=== PATIENT | male | born 1945 | race Caucasian/White ===

== ENCOUNTER 2022-09-17 11:10 | Emergency (ER) | payer OTHER ==
[2022-09-17 11:57] VITALS: BP 148/66; PULSE 64; RESP 18; TEMP 97.5; BMI 26.4
[2022-09-17] MEDS ORDERED: ACETAMINOPHEN 500 MG TABLET (FP) PO ONE (13:08)
[2022-09-17] MEDS ORDERED: ACETAMINOPHEN 325 MG TABLET (FP) ONE (13:15)
[2022-09-17 13:41] LABS: URINE APPEARANCE CLEAR; URINE BILIRUBIN NEGATIVE (NEGATIVE); URINE COLOR YELLOW; URINE GLUCOSE (UA) NEGATIVE (NEGATIVE); URINE KETONE NEGATIVE (NEGATIVE); URINE LEUK ESTERASE NEGATIVE (NEGATIVE); URINE NITRITE NEGATIVE (NEGATIVE); URINE PROTEIN NEGATIVE (NEGATIVE); URINE UROBILINOGEN 0.2 mg/dL (0.2-1.0)
[2022-09-17 13:50] LABS: BASO % 0.9 % (0-2.0); EOS % 5.1 % (0-4.5); HEMATOCRIT 41.5 % (35.4-49); HEMOGLOBIN 13.9 GM/dL (11.7-16.9); LYMPH % 21.2 % (8-40); MCH 30.8 pg (25.7-33.7); MCHC 33.6 g/dl (32.0-35.9); MEAN CELL VOLUME 91.8 fl (80-96); MEAN PLT VOLUME 10.6 fl (7.5-11.1); MONO % 7.5 % (3.8-10.2); NEUT % 65.3 % (42.8-82.8); PLATELET COUNT 120 10^3/uL (134-434); RBC 4.52 M/mm3 (4.00-5.60); RDW 13.7 % (11.9-15.9)
[2022-09-17 13:57] LABS: INR 1.21 (0.83-1.09); PROTHROMBIN TIME (PATIENT) 13.9 SEC (9.7-13.0)
[2022-09-17 14:00] LABS: ACTIVATED PTT 29.2 SECONDS (25.2-36.5)
[2022-09-17 14:06] LABS: ALBUMIN 3.8 g/dl (3.4-5.0); BLOOD UREA NITROGEN 12.5 mg/dL (7-18); CALCIUM 8.9 mg/dL (8.5-10.1)
[2022-09-17 14:09] LABS: CREATININE 0.9 mg/dL (0.55-1.3)
[2022-09-17 14:11] LABS: BILIRUBIN,TOTAL 1.1 mg/dL (0.2-1); TOT PROT 7.2 g/dl (6.4-8.2)
== END 2022-09-17 17:22 | disposition home or self-care (01) ==
LOC: JER 11:10
DX: N50.811 Right testicular pain (principal)
CPT/HCPCS: 36415; 76870-TC; 80053; 81003; 82272; 83735; 85025; 85610; 85730; 86850; 86900; 86901; 87086; 99284-25